=== PATIENT | female | born 1990 | race Caucasian/White ===

== ENCOUNTER 2019-01-25 09:59 | Emergency (ER) | payer MEDICAID ==
[2019-01-25] MEDS ORDERED: IBUPROFEN 600 MG TABLET PO ONE (10:11)
--- NOTE | 2019-01-25 10:16 | Emergency Department Record ---
History of Present Illness - General Chief complaint: Extremity Problem Stated complaint: SHOULDER INJURY Time Seen by Provider: 01/25/19 10:11 Source: Patient Mode of Arrival: Ambulatory Limitations: No limitations - History of Present Illness Initial comments: 28 yo female presents with right shoulder pain for over a week. The pain is superior and anterior. She states it hurts to lift the arm and externally rotate. No swelling, numbness or weakness. She did have a fall in November. It hurt for some time then but got better. No history of known shoulder disease. Dr Harrell is her PCP. MD Complaint: Joint pain Onset/Timin -: Week(s) Location: Right, Shoulder -: Yes Arthralgia Severity scale (1-10): 7 Quality: Aching, Sharp Consistency: Constant Improves with: Nothing Worsens with: Exertion, Weight bearing - Related Data Allergies Allergy/AdvReac Type Severity Reaction Status Date / Time codeine [CODEINE] Allergy Intermediate ANAPHYLAXIS Unverified 07/10/18 08:44 Travel Screening - Travel/Exposure Within Last 30 Days Have you traveled within the last 30 days?: No - Travel/Exposure Within Last Year Have you traveled outside the [place] in the last year?: No - Additonal Travel Details Have you been exposed to anyone with a communicable illness?: No - Travel Symptoms Symptom Screening: None Review of Systems Constitutional: Denies: Chills, Fever, Malaise, Weakness Eyes: Denies: Eye discharge, Vision change ENT: Denies: Congestion, Throat pain Respiratory: Denies: Cough, Dyspnea Cardiovascular: Denies: Chest pain, Syncope Endocrine: Denies: Fatigue Gastrointestinal: Denies: Abdominal pain, Diarrhea, Nausea, Vomiting Genitourinary: Denies: Abnormal menses Musculoskeletal: Reports: Arthralgia Skin: Denies: Bruising, Change in color, Rash Neurological: Denies: Headache, Weakness Psychiatric: Denies: Anxiety Hematological/Lymphatic: Denies: Easy bleeding, Easy bruising Past Medical History - SOCIAL HISTORY Smoking Status: Light tobacco smoker (<10/day) Alcohol Use: None Drug Use: None - RESPIRATORY Hx Respiratory Disorders: No - CARDIOVASCULAR Hx Cardio Disorders: No - NEURO Hx Neuro Disorders: No - GI Hx GI Disorders: No - Hx Genitourinary Disorders: Yes Hx Kidney Stones: Yes - ENDOCRINE Hx Endocrine Disorders: No - MUSCULOSKELETAL Hx Musculoskeletal Disorders: No - PSYCH Hx Psych Problems: No - HEMATOLOGY/ONCOLOGY Hx Hematology/Oncology Disorders: No Family Medical History Any Significant Family History?: No Family Hx Comment (NOT TO BE USED IN PLACE OF ITEMS BELOW): denies any hx. Physical Exam - General General Appearance: Alert, Oriented x3, Cooperative, No acute distress Limitations: No limitations - Head Head exam: Atraumatic, Normal inspection - Eye Eye exam: Normal appearance, PERRL. negative: Conjunctival injection, Scleral icterus - ENT ENT exam: Normal exam Ear exam: Normal external inspection Nasal Exam: Normal inspection Mouth exam: Normal external inspection - Neck Neck exam: Normal inspection - Respiratory Respiratory exam: Normal lung sounds bilaterally. negative: Respiratory distress, Rhonchi, Stridor, Wheezes - Cardiovascular Cardiovascular Exam: Regular rate, Normal rhythm, Normal heart sounds Peripheral Pulses: 2+: Radial (R) - GI/Abdominal GI/Abdominal exam: Soft. negative: Tenderness - Rectal Rectal exam: Deferred - exam: Deferred - Extremities Extremities exam: Normal inspection, Normal capillary refill, Tenderness. negative: Calf tenderness, Full ROM, Joint swelling, Pedal edema Image of Full Body: 1 - tender superior and at the AC, pain with abduction and external rotation, no warmth, redness or swelling - Neurological Neurological exam: Alert, Oriented X3 - Psychiatric Psychiatric exam: Normal affect, Normal mood - Skin Skin exam: Dry, Intact, Normal color, Warm Course Vital Signs 01/25/19 10:01 Temperature 98.3 F Pulse Rate 119 H Respiratory 16 Rate Blood Pressure 122/86 Pulse Ox 99 - Reevaluation(s) Reevaluation #1: 01/25/19 11:04 The XR of the right shoulder was negative for acute process We discussed the results and follow plan if any pain continues as she may need further work up with MRI Disposition Disposition: Discharge Clinical Impression: Sprain of shoulder, right Qualifiers: Encounter type: initial encounter Shoulder sprain type: unspecified sprain Qualified Code(s): S43.401A - Unspecified sprain of right shoulder joint, initial encounter Disposition: Home, Self-Care Condition: (1) Good Instructions: Shoulder Sprain (ED) Additional Instructions: Call your doctor for the next available follow up appointment You may need an MRI if the pain continues You may take Motrin as directed and ice the shoulder to decrease the pain Review this ER visit and the tests performed with your family doctor to discuss any follow up needs Forms: Patient Portal Access Time of Disposition: 11:05 Quality - Quality Measures Quality Measures: N/A - Blood Pressure Screening Does Patient Have Any of the Following: No Blood Pressure Classification: Normal BP Reading Systolic Measurement: 105 Diastolic Measurement: 78 Screening for High Blood Pressure: < Normal BP, F/U Not Required > [G8783]
== END 2019-01-25 11:25 | disposition home or self-care (01) ==
LOC: ER 09:59
DX: S43.401A Unspecified sprain of right shoulder joint, initial encounter (principal); X58.XXXA Exposure to other specified factors, initial encounter; F17.210 Nicotine dependence, cigarettes, uncomplicated
CPT/HCPCS: 99283

== ENCOUNTER 2019-02-05 18:14 | Emergency (ER) | payer MEDICAID ==
[2019-02-05] MEDS ORDERED: 0.9 % SODIUM CHLORIDE 1,000 ML BAG IV ONE (19:35)
--- NOTE | 2019-02-05 19:35 | Emergency Department Record ---
History of Present Illness - General Chief complaint: Flank Pain Stated complaint: CAN'T PEE/BACK PAIN Time Seen by Provider: 02/05/19 19:21 Source: Patient Mode of Arrival: Ambulatory - History of Present Illness Initial comments: The patient states that she has been unable to urinate all day today. She feels full in her bladder and her right flank hurts since last night. She tried a heating pad and motrin last night but it is worse today. She denies fevers, chills, nausea, or vomiting. She has a history of kidney stones and hydronephrosis in the past. 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 in the last year?: No - Additonal Travel Details Have you been exposed to anyone with a communicable illness?: No - Travel Symptoms Symptom Screening: None Review of Systems Reviewed: No additional complaints except as noted below Constitutional: Reports: As per HPI. Denies: Chills, Fever, Malaise, Night sweats, Weakness, Weight change Eyes: Reports: As per HPI. Denies: Eye discharge, Eye pain, Photophobia, Vision change ENT: Reports: As per HPI. Denies: Congestion, Dental pain, Ear pain, Epistaxis , Hearing loss, Throat pain Respiratory: Reports: As per HPI. Denies: Cough, Dyspnea, Hemoptysis, Stridor, Wheezes Cardiovascular: Reports: As per HPI. Denies: Arrhythmia, Chest pain, Dyspnea on exertion, Edema, Murmurs, Orthopnea, Palpitations, Paroxysmal nocturnal dyspnea, Rheumatic Fever, Syncope Endocrine: Reports: As per HPI. Denies: Fatigue, Heat or cold intolerance, Polydipsia, Polyuria Gastrointestinal: Reports: As per HPI. Denies: Abdominal pain, Constipation, Diarrhea, Hematemesis, Hematochezia, Melena, Nausea, Vomiting Genitourinary: Reports: As per HPI. Denies: Abnormal menses, Discharge, Dyspareunia, Dysuria, Frequency, Hematuria, Incontinence, Retention, Urgency Musculoskeletal: Reports: As per HPI. Denies: Arthralgia, Back pain, Gout, Joint swelling, Myalgia, Neck pain Skin: Reports: As per HPI. Denies: Bruising, Change in color, Change in hair/ nails, Lesions, Pruritus, Rash Neurological: Reports: As per HPI. Denies: Abnormal gait, Confusion, Headache, Numbness, Paresthesias, Seizure, Tingling, Tremors, Vertigo, Weakness Psychiatric: Reports: As per HPI. Denies: Anxiety, Auditory hallucinations, Depression, Homicidal thoughts, Suicidal thoughts, Visual hallucinations Hematological/Lymphatic: Reports: As per HPI. Denies: Anemia, Blood Clots, Easy bleeding, Easy bruising, Swollen glands Past Medical History - SOCIAL HISTORY Smoking Status: Light tobacco smoker (<10/day) Alcohol Use: None Drug Use: None - RESPIRATORY Hx Respiratory Disorders: No - CARDIOVASCULAR Hx Cardio Disorders: No - NEURO Hx Neuro Disorders: No - GI Hx GI Disorders: No - Hx Genitourinary Disorders: Yes Hx Kidney Stones: Yes - ENDOCRINE Hx Endocrine Disorders: No - MUSCULOSKELETAL Hx Musculoskeletal Disorders: No - PSYCH Hx Psych Problems: No - HEMATOLOGY/ONCOLOGY Hx Hematology/Oncology Disorders: No Family Medical History Any Significant Family History?: No Family Hx Comment (NOT TO BE USED IN PLACE OF ITEMS BELOW): denies any hx. Physical Exam - General General Appearance: Alert, Oriented x3, Cooperative, Mild distress - Head Head exam: Normal inspection - Eye Eye exam: Normal appearance, PERRL, EOMI. negative: Conjunctival injection, Nystagmus Pupils: Normal accommodation - ENT ENT exam: Normal exam, Mucous membranes moist, Normal external ear exam, Normal orophraynx, TM's normal bilaterally Ear exam: Normal external inspection. negative: External canal tenderness Nasal Exam: Normal inspection. negative: Discharge, Sinus tenderness Mouth exam: Normal external inspection, Tongue normal Teeth exam: Normal inspection. negative: Dental caries Throat exam: Normal inspection. negative: Tonsillar erythema, Tonsillar exudate - Neck Neck exam: Normal inspection, Full ROM. negative: Lymphadenopathy, Meningismus , Tenderness - Respiratory Respiratory exam: Normal lung sounds bilaterally. negative: Respiratory distress - Cardiovascular Cardiovascular Exam: Normal rhythm, Normal heart sounds, Tachycardia - GI/Abdominal GI/Abdominal exam: Soft, Normal bowel sounds, Tenderness (right lateral lower abdomen) - Rectal Rectal exam: Deferred - exam: Deferred - Extremities Extremities exam: Normal inspection, Full ROM, Normal capillary refill. negative: Calf tenderness, Pedal edema, Tenderness - Back Back exam: Reports: Normal inspection, CVA tenderness (R), Full ROM. Denies: Muscle spasm, Rash noted, Tenderness - Neurological Neurological exam: Alert, CN II-XII intact, Normal gait, Oriented X3, Reflexes normal. negative: Motor sensory deficit - Psychiatric Psychiatric exam: Normal affect, Normal mood - Skin Skin exam: Dry, Intact, Normal color, Warm Course Vital Signs 02/05/19 18:35 Temperature 98.2 F Pulse Rate 101 H Respiratory 16 Rate Blood Pressure 115/76 Pulse Ox 98 - Reevaluation(s) Reevaluation #1: Patient states that the toradol did not help her pain. dilaudid ordered. 02/05/19 21:36 Reevaluation #2: Discussed at length the need for a leg bag for the retention. Also discussed results of studies and all questions answered. Patient agrees and will call her urologist Dr. Huang in a.m. for recheck appointment. She has home catherization supplies as she has needed this in the past. After dilaudid her pain level is 0-1/10. She is read for DC. 02/05/19 22:16 Medical Decision Making - Management Options MDM Management: Additional Work-up Planned (e.g. ADM/Transfer/OP Study) (Out patient follow up with Dr. Huang.) - Data Complexity MDM Data: Labs Ordered and/or Reviewed, X-Ray Ordered and/or Reviewed (CT abd/ Pelvis: No acute process.) - Lab Data Result diagrams: 02/05/19 18:55 02/05/19 18:55 Disposition Disposition: Discharge Clinical Impression: Urinary retention with incomplete bladder emptying, Right flank pain Disposition: Home, Self-Care Condition: (1) Good Instructions: Flank Pain (ED), Acute Urinary Retention in Women (ED) Additional Instructions: Home with leg bag. Call Dr. Huang office in a.m. for follow up appointment. Push fluids. Tylenol alternated with ibuprofen as directed as needed for pain. Forms: Patient Portal Access Quality - Quality Measures Quality Measures: N/A - Blood Pressure Screening Does Patient Have Any of the Following: No Blood Pressure Classification: Normal BP Reading Systolic Measurement: 115 Diastolic Measurement: 76 Screening for High Blood Pressure: < Normal BP, F/U Not Required > [G8796]
[2019-02-05 19:47] LABS: URINE APPEARANCE CLEAR; URINE BILIRUBIN NEGATIVE (NEGATIVE); URINE BLOOD NEGATIVE (NEGATIVE); URINE COLOR YELLOW; URINE GLUCOSE (UA) NEGATIVE (NEGATIVE); URINE KETONE NEGATIVE (NEGATIVE); URINE LEUKOCYTE ESTERASE NEGATIVE (NEGATIVE); URINE NITRITE NEGATIVE (NEGATIVE); URINE PROTEIN NEGATIVE (NEGATIVE); URINE UROBILINOGEN 0.2 E.U./dL (0.20 - 1.00)
[2019-02-05 19:48] LABS: BASO % 0.3 % (0-6); EOS % 2.3 % (0-6); HEMATOCRIT 43.1 % (35.0-47.0); HEMOGLOBIN 13.7 gm/dl (11.6-16.0); LYMPH % 31.6 % (16-45); MEAN CELL VOLUME 89.2 fl (81-97); MEAN CORPUSCULAR HEMOGLOBIN 28.4 pg (27-33); MEAN CORPUSCULAR HGB CONC 31.8 g/dl (32-36); MEAN PLATELET VOLUME 10.7 fl (7.4-10.4); MONO % 5.8 % (0-9); PLATELET COUNT 373 K/uL (130-400); RED BLOOD COUNT 4.83 M/uL (3.80-5.40); RED CELL DISTRIBUTION WIDTH 14.1 % (11.5-14.5); WHITE BLOOD COUNT W/O DIFF 7.9 K/uL (4.2-12.2)
[2019-02-05 19:50] LABS: HCG,QUALITATIVE URINE NEGATIVE (NEGATIVE)
--- NOTE | 2019-02-05 19:52 | Emergency Department Record ---
History of Present Illness - General Chief complaint: Flank Pain Stated complaint: CAN'T PEE/BACK PAIN Time Seen by Provider: 02/05/19 19:21 Mode of Arrival: Ambulatory - History of Present Illness Onset/Timin -: Hour(s) Severity scale (1-10): 6 Quality: Sharp, Stabbing Consistency: Constant LMP Date: 08/19/18 Gestational Age (wks) based on LMP: 24 Associated Symptoms: Dysuria - Related Data Allergies Allergy/AdvReac Type Severity Reaction Status Date / Time codeine [CODEINE] Allergy Intermediate ANAPHYLAXIS Verified 02/05/19 18:46 Travel Screening - Travel/Exposure Within Last 30 Days Have you traveled within the last 30 days?: No - Travel/Exposure Within Last Year Have you traveled outside the [place] in the last year?: No - Additonal Travel Details Have you been exposed to anyone with a communicable illness?: No - Travel Symptoms Symptom Screening: None Past Medical History - SOCIAL HISTORY Smoking Status: Light tobacco smoker (<10/day) Alcohol Use: None Drug Use: None - RESPIRATORY Hx Respiratory Disorders: No - CARDIOVASCULAR Hx Cardio Disorders: No - NEURO Hx Neuro Disorders: No - GI Hx GI Disorders: No - Hx Genitourinary Disorders: Yes Hx Kidney Stones: Yes - ENDOCRINE Hx Endocrine Disorders: No - MUSCULOSKELETAL Hx Musculoskeletal Disorders: No - PSYCH Hx Psych Problems: No - HEMATOLOGY/ONCOLOGY Hx Hematology/Oncology Disorders: No Family Medical History Any Significant Family History?: No Family Hx Comment (NOT TO BE USED IN PLACE OF ITEMS BELOW): denies any hx. Course Vital Signs 02/05/19 18:35 Temperature 98.2 F Pulse Rate 101 H Respiratory 16 Rate Blood Pressure 115/76 Pulse Ox 98 Disposition Quality - Blood Pressure Screening Does Patient Have Any of the Following: No Blood Pressure Classification: Normal BP Reading Systolic Measurement: 115 Diastolic Measurement: 76 Screening for High Blood Pressure: < Normal BP, F/U Not Required > [G8783]
[2019-02-05 19:56] LABS: BLOOD UREA NITROGEN 15 mg/dL (6-20); CREATININE 0.6 mg/dL (0.5-0.9); EST GLOMERULAR FILTRATION RATE > 60 mL/min; TOTAL PROTEIN 7.7 g/dL (6.6-8.7)
[2019-02-05 19:57] LABS: LIPASE 27 U/L (13-60)
[2019-02-05 19:58] LABS: GLUCOSE,RANDOM 83 mg/dL (74-109)
[2019-02-05 20:01] LABS: ALB/GLOB RATIO 1.6 (1.1-1.8); ALBUMIN 4.7 g/dL (4.0-5.0); ALKALINE PHOSPHATASE 197 U/L (35-104); ALT/SGPT 17 U/L (<33); AST/SGOT 15 U/L (10.0-35.0)
[2019-02-05] MEDS ORDERED: KETOROLAC 30 MG/ML VIAL IVP ONE (20:38)
[2019-02-05] MEDS ORDERED: HYDROMORPHONE HCL 2 MG/ML VIAL IVP ONE (21:34)
[2019-02-05] MEDS ORDERED: ONDANSETRON HCL IV 4 MG/2 ML VIAL IVP ONE (21:35)
--- NOTE | 2019-02-07 13:27 | CT SCAN REPORT ---
EXAM: CT OF THE ABDOMEN AND PELVIS WITHOUT CONTRAST HISTORY: FLANK PAIN. TECHNIQUE: Noncontrast CT images are obtained from the lung bases to the symphysis pubis. FINDINGS: The lung bases are unremarkable. The liver is normal in size and shape. The gallbladder is absent. The pancreas is normal. The spleen is not enlarged. There are no adrenal lesions. There is no evidence of renal calculus or hydronephrosis. The right ureter is unremarkable to the level of the bladder wall. There is a Beltre catheter present in a nondistended bladder. The stomach and small bowel are unremarkable. The appendix is not identified, but there are no inflammatory changes around the cecum. IMPRESSION: NO ACUTE INTRAABDOMINAL PROCESS IS IDENTIFIED. JOB NUMBER: [id number] MTDD
== END 2019-02-05 22:44 | disposition home or self-care (01) ==
LOC: ER 18:14
DX: R33.8 Other retention of urine (principal); R30.0 Dysuria; R34 Anuria and oliguria; R10.31 Right lower quadrant pain; F17.210 Nicotine dependence, cigarettes, uncomplicated
CPT/HCPCS: 99284 ×2; 96374; 96375; 83690; 85025; 80053; 81003; 81025; 74176; J1885; J2405; J1170; J7030

== ENCOUNTER 2019-04-01 18:05 | Emergency (ER) | payer MEDICAID ==
[2019-04-01] MEDS ORDERED: 0.9 % SODIUM CHLORIDE 1,000 ML BAG IV ONE (18:38)
--- NOTE | 2019-04-01 18:38 | Emergency Department Record ---
History of Present Illness - General Chief complaint: Flank Pain Stated complaint: R FLANK PAIN Time Seen by Provider: 04/01/19 18:15 Source: Patient Mode of Arrival: Ambulatory Limitations: No limitations - History of Present Illness Initial comments: pt has been unable to urinate since this am. she has r flank pain that feels like previous kidny stones. Complaint: Other Onset/Timin -: Days(s) Location: Suprapubic Radiation: R flank Severity: Moderate Severity scale (1-10): 6 Quality: Aching Consistency: Constant Improves with: None Worsens with: None Associated Symptoms: Abdominal pain, Dysuria, Nausea/vomiting - Related Data Allergies Allergy/AdvReac Type Severity Reaction Status Date / Time codeine [CODEINE] Allergy Intermediate ANAPHYLAXIS Verified 04/01/19 18:15 Travel Screening - Travel/Exposure Within Last 30 Days Have you traveled within the last 30 days?: No Review of Systems Reviewed: No additional complaints except as noted below Constitutional: Reports: As per HPI. Denies: Chills, Fever, Malaise, Night sweats, Weakness, Weight change Eyes: Reports: As per HPI. Denies: Eye discharge, Eye pain, Photophobia, Vision change ENT: Reports: As per HPI. Denies: Congestion, Dental pain, Ear pain, Epistaxis, Hearing loss, Throat pain Respiratory: Reports: As per HPI. Denies: Cough, Dyspnea, Hemoptysis, Stridor, Wheezes Cardiovascular: Reports: As per HPI. Denies: Arrhythmia, Chest pain, Dyspnea on exertion, Edema, Murmurs, Orthopnea, Palpitations, Paroxysmal nocturnal dyspnea, Rheumatic Fever, Syncope Endocrine: Reports: As per HPI. Denies: Fatigue, Heat or cold intolerance, Polydipsia, Polyuria Gastrointestinal: Reports: As per HPI. Denies: Abdominal pain, Constipation, Diarrhea, Hematemesis, Hematochezia, Melena, Nausea, Vomiting Genitourinary: Reports: As per HPI. Denies: Abnormal menses, Discharge, Dyspareunia, Dysuria, Frequency, Hematuria, Incontinence, Retention, Urgency Musculoskeletal: Reports: As per HPI. Denies: Arthralgia, Back pain, Gout, Joint swelling, Myalgia, Neck pain Skin: Reports: As per HPI. Denies: Bruising, Change in color, Change in hair/nails, Lesions, Pruritus, Rash Neurological: Reports: As per HPI. Denies: Abnormal gait, Confusion, Headache, Numbness, Paresthesias, Seizure, Tingling, Tremors, Vertigo, Weakness Psychiatric: Reports: As per HPI. Denies: Anxiety, Auditory hallucinations, Depression, Homicidal thoughts, Suicidal thoughts, Visual hallucinations Hematological/Lymphatic: Reports: As per HPI. Denies: Anemia, Blood Clots, Easy bleeding, Easy bruising, Swollen glands Past Medical History - SOCIAL HISTORY Smoking Status: Light tobacco smoker (<10/day) Alcohol Use: None Drug Use: None - RESPIRATORY Hx Respiratory Disorders: No - CARDIOVASCULAR Hx Cardio Disorders: No - NEURO Hx Neuro Disorders: No - GI Hx GI Disorders: No - Hx Genitourinary Disorders: Yes Hx Kidney Stones: Yes Hx UTI: Yes - ENDOCRINE Hx Endocrine Disorders: No - MUSCULOSKELETAL Hx Musculoskeletal Disorders: No - PSYCH Hx Psych Problems: No - HEMATOLOGY/ONCOLOGY Hx Hematology/Oncology Disorders: No Family Medical History Any Significant Family History?: No Family Hx Comment (NOT TO BE USED IN PLACE OF ITEMS BELOW): denies any hx. Physical Exam - General General Appearance: Alert, Oriented x3, Cooperative, Mild distress - Head Head exam: Normal inspection - Eye Eye exam: Normal appearance, PERRL, EOMI Pupils: Normal accommodation - ENT ENT exam: Normal exam, Mucous membranes moist, Normal external ear exam, Normal orophraynx Ear exam: Normal external inspection. negative: External canal tenderness Nasal Exam: Normal inspection. negative: Discharge, Sinus tenderness Mouth exam: Normal external inspection, Tongue normal Teeth exam: Normal inspection. negative: Dental caries Throat exam: Normal inspection. negative: Tonsillar erythema, Tonsillar exudate - Neck Neck exam: Normal inspection, Full ROM. negative: Tenderness - Respiratory Respiratory exam: Normal lung sounds bilaterally. negative: Respiratory distress - Cardiovascular Cardiovascular Exam: Regular rate, Normal rhythm, Normal heart sounds - GI/Abdominal GI/Abdominal exam: Soft, Normal bowel sounds. negative: Tenderness - Rectal Rectal exam: Deferred - exam: Deferred - Extremities Extremities exam: Normal inspection, Full ROM, Normal capillary refill. negative: Tenderness - Back Back exam: Reports: CVA tenderness (R), Full ROM. Denies: Muscle spasm, Rash noted, Tenderness - Neurological Neurological exam: Alert, CN II-XII intact, Normal gait, Oriented X3 - Psychiatric Psychiatric exam: Normal affect, Normal mood - Skin Skin exam: Dry, Intact, Normal color, Warm Course Vital Signs 04/01/19 18:11 Temperature 97.7 F Pulse Rate 86 Respiratory 18 Rate Blood Pressure 144/84 Pulse Ox 100 - Reevaluation(s) Reevaluation #1: 04/01/19 20:47 ct neg Medical Decision Making - Lab Data Result diagrams: 04/01/19 18:30 04/01/19 18:30 Disposition Disposition: Discharge Clinical Impression: Urinary retention Disposition: Home, Self-Care Condition: (1) Good Instructions: Acute Urinary Retention in Women (ED) Additional Instructions: follow up with family doctor and with urologist. return sooner if worse Forms: Patient Portal Access Quality - Quality Measures Quality Measures: N/A - Blood Pressure Screening Does Patient Have Any of the Following: No Blood Pressure Classification: Pre-Hypertensive BP Reading Systolic Measurement: 144 Diastolic Measurement: 84 Screening for High Blood Pressure: < Pre-Hypertensive BP, F/U Documented > [G8950] Pre-Hypertensive Follow-up Interventions: Follow-up with rescreen every year.
[2019-04-01 18:48] LABS: ABSOLUTE NEUTROPHIL COUNT 4.13; BASO % 0.3 % (0-6); EOS % 1.7 % (0-6); GRAN % 54.7 % (47-80); HEMATOCRIT 42.7 % (35.0-47.0); HEMOGLOBIN 13.4 gm/dl (11.6-16.0); LYMPH % 37.6 % (16-45); MEAN CELL VOLUME 90.1 fl (81-97); MEAN CORPUSCULAR HEMOGLOBIN 28.3 pg (27-33); MEAN CORPUSCULAR HGB CONC 31.4 g/dl (32-36); MEAN PLATELET VOLUME 10.3 fl (7.4-10.4); MONO % 5.7 % (0-9); PLATELET COUNT 388 K/uL (130-400); RED BLOOD COUNT 4.74 M/uL (3.80-5.40); RED CELL DISTRIBUTION WIDTH 13.6 % (11.5-14.5); WHITE BLOOD COUNT W/O DIFF 7.6 K/uL (4.2-12.2)
[2019-04-01 19:01] LABS: BLOOD UREA NITROGEN 10 mg/dL (6-20); CREATININE 0.6 mg/dL (0.5-0.9); EST GLOMERULAR FILTRATION RATE > 60 mL/min
[2019-04-01 19:04] LABS: GLUCOSE,RANDOM 89 mg/dL (74-109)
[2019-04-01 19:16] LABS: URINE APPEARANCE CLEAR; URINE BILIRUBIN NEGATIVE (NEGATIVE); URINE BLOOD TRACE-I (NEGATIVE); URINE COLOR YELLOW; URINE GLUCOSE (UA) NEGATIVE (NEGATIVE); URINE KETONE NEGATIVE (NEGATIVE); URINE LEUKOCYTE ESTERASE NEGATIVE (NEGATIVE); URINE NITRITE NEGATIVE (NEGATIVE); URINE PROTEIN NEGATIVE (NEGATIVE); URINE UROBILINOGEN 0.2 E.U./dL (0.20 - 1.00)
[2019-04-01 19:23] LABS: HCG,QUALITATIVE URINE NEGATIVE (NEGATIVE)
[2019-04-01 19:28] LABS: URINE BACTERIA FEW; URINE EPITHELIAL CELLS 0 - 2 (FEW); URINE WBC 0 - 2 (0-2/hpf)
[2019-04-01] MEDS ORDERED: KETOROLAC 30 MG/ML VIAL IVP ONE (19:35)
--- NOTE | 2019-04-03 14:05 | CT SCAN REPORT ---
EXAM: CT SCAN OF THE ABDOMEN AND PELVIS HISTORY: PATIENT HAS RIGHT FLANK PAIN. TECHNIQUE: Serial axial CT scan of the abdomen and pelvis was performed at 2.5 mm intervals from the dome of the diaphragm down to the pubic symphysis without the use of intravenous or oral contrast. Comparison: CT scan of the abdomen and pelvis dated 03/04/19 is provided. FINDINGS: Lung windows of the lung bases demonstrate no CT evidence of a focal infiltrate or pleural effusion. The visualized heart size and contour is within normal limits. The liver, spleen, pancreas, and bilateral adrenal glands are unremarkable. The gallbladder is not visualized. The bilateral kidneys demonstrate no CT evidence of hydronephrosis or hydroureter. No renal or ureteral calculi are noted. The contour and caliber of the noncontrasted abdominal aorta is within normal limits. There is no CT evidence of retroperitoneal, pelvic, or inguinal lymphadenopathy. The bowel gas pattern is nonspecific and nonobstructive. There is no CT evidence of free intraperitoneal fluid or free intraperitoneal air. The uterus is unremarkable. Bone windows demonstrate no CT evidence of a fracture or dislocation of the visualized osseous structures. IMPRESSION: NO CT EVIDENCE OF AN ACUTE INTRAABDOMINAL PROCESS. JOB NUMBER: [id number] MTDD
== END 2019-04-01 21:04 | disposition home or self-care (01) ==
LOC: ER 18:05
DX: R33.8 Other retention of urine (principal); R10.9 Unspecified abdominal pain; R33.0 Drug induced retention of urine; R11.2 Nausea with vomiting, unspecified; Z87.442 Personal history of urinary calculi; F17.210 Nicotine dependence, cigarettes, uncomplicated
CPT/HCPCS: 99284 ×2; 96374; 85025; 80048; 81001; 81025; 74176; J1885; J7030

== ENCOUNTER 2019-08-05 18:51 | Emergency (ER) | payer SELFPAY ==
--- NOTE | 2019-08-05 19:03 | Emergency Department Record ---
History of Present Illness - General Stated Complaint: RT FLANK PAIN Time Seen by Provider: 08/05/19 19:01 Source: Patient Mode of Arrival: Ambulatory Limitations: No limitations - History of Present Illness Initial Comments: 29 yo female presents with flank pain. The pain is located on the right side. No fever. The pain is sharp. The pain started four days ago. It has been constant. She has a history of renal stones in the past. She had a complicated by an obstructing renal stone resulting in stent. She has had her gall bladder and appendix removed. No trauma, no rash. No diarrhea. She has some pain with urination. EMR reviewed: Negative CT of the abdomen and pelvis for stones in February and March of 2019. Both normal CT scan examinations. MD Complaint: Flank pain -: Days(s) (4) Location: R Flank Radiation: R flank Migration to: R Flank Severity: Moderate Quality: Aching, Sharp Consistency: Constant Improves With: Nothing Worsens With: Nothing Context: Other Associated Symptoms: Denies other symptoms - Related Data Allergies Allergy/AdvReac Type Severity Reaction Status Date / Time codeine [CODEINE] Allergy Intermediate ANAPHYLAXIS Verified 08/05/19 19:13 Review of Systems Constitutional: Denies: Chills, Fever, Malaise, Night sweats, Weakness Eyes: Denies: Eye discharge ENT: Denies: Congestion, Throat pain Respiratory: Denies: Cough, Dyspnea Cardiovascular: Denies: Chest pain, Palpitations, Syncope Endocrine: Denies: Fatigue, Polydipsia, Polyuria Gastrointestinal: Reports: As per HPI, Abdominal pain. Denies: Diarrhea, Nausea, Vomiting Genitourinary: Reports: Abnormal menses, Dysuria. Denies: Incontinence, Retention Musculoskeletal: Reports: As per HPI, Back pain Skin: Denies: Bruising, Change in color, Rash Neurological: Denies: Confusion, Headache, Numbness, Weakness Psychiatric: Denies: Anxiety Hematological/Lymphatic: Denies: Easy bleeding, Easy bruising Past Medical History - SOCIAL HISTORY Smoking Status: Light tobacco smoker (<10/day) Drug Use: None - RESPIRATORY Hx Respiratory Disorders: No - CARDIOVASCULAR Hx Cardio Disorders: No - NEURO Hx Neuro Disorders: No - GI Hx GI Disorders: No - Hx Genitourinary Disorders: Yes Hx Kidney Stones: Yes Hx UTI: Yes - ENDOCRINE Hx Endocrine Disorders: No - MUSCULOSKELETAL Hx Musculoskeletal Disorders: No - PSYCH Hx Psych Problems: No - HEMATOLOGY/ONCOLOGY Hx Hematology/Oncology Disorders: No Family Medical History Family Hx Comment (NOT TO BE USED IN PLACE OF ITEMS BELOW): denies any hx. Physical Exam - General General Appearance: Alert, Oriented x3, Cooperative, No acute distress Limitations: No limitations - Head Head exam: Atraumatic, Normal inspection - Eye Eye exam: Normal appearance, PERRL. negative: Conjunctival injection, Scleral icterus - ENT ENT exam: Normal exam, Mucous membranes moist Ear exam: Normal external inspection Nasal Exam: Normal inspection Mouth exam: Normal external inspection - Neck Neck exam: Normal inspection - Respiratory Respiratory exam: Normal lung sounds bilaterally. negative: Respiratory distress - Cardiovascular Cardiovascular Exam: Regular rate, Normal rhythm, Normal heart sounds - GI/Abdominal GI/Abdominal exam: Soft, Tenderness (mild suprapubic tenderness). negative: Distended, Guarding, Rebound, Rigid - Rectal Rectal exam: Deferred - exam: Deferred - Extremities Extremities exam: Normal inspection. negative: Calf tenderness, Pedal edema, Tenderness - Back Back exam: Reports: CVA tenderness (R), Tenderness. Denies: CVA tenderness (L), Paraspinal tenderness, Rash noted - Neurological Neurological exam: Alert, Oriented X3 - Psychiatric Psychiatric exam: Normal affect, Normal mood. negative: Agitated, Anxious - Skin Skin exam: Dry, Intact, Normal color, Warm Course Vital Signs 08/05/19 19:01 Temperature 98.4 F Pulse Rate [ 86 Pulse Ox Probe] Respiratory 20 Rate Blood Pressure 123/78 [Left Arm] Pulse Ox 100 - Reevaluation(s) Reevaluation #1: 08/05/19 19:13 EMR reviewed The most recent CT of the abdomen was 04/01/19. It was negative for stone in the kidney, ureter or bladder. Normal CT The CT in February of 2019 was normal as well I discussed step howell approach to her pain given her multiple CT scan history with risks of increasing radiation exposure. Given no stones less than 5 months ago and a normal study the month prior to that to do not recommend and immediate emergent CT. 08/05/19 19:21 HCT is negative 08/05/19 19:23 08/05/19 19:28 UA is negative for blood or acute infection 08/05/19 19:28 08/05/19 19:45 The CBC is normal The BMP is normal 08/05/19 19:58 Alk Phos 189 AST normal, ALT Normal, Bili Normal, Lipase Normal I recommend return in the AM for an US if the flank pain continues If resolved or minimal follow up with her PCP Medical Decision Making - Lab Data Result diagrams: 08/05/19 19:20 08/05/19 19:20 Disposition Disposition: Discharge Clinical Impression: Flank pain Disposition: Home, Self-Care Condition: (1) Good Instructions: Flank Pain (ED) Additional Instructions: Review this ER visit and the tests performed with your family doctor Call your doctor for the next available follow up appointment Return to the ER for a recheck if worse, any new concerns or questions Return at 7am for a recheck and ultrasound if the pain is still present Forms: Patient Portal Access Time of Disposition: 20:05 Quality - Quality Measures Quality Measures: N/A - Blood Pressure Screening Does Patient Have Any of the Following: No Blood Pressure Classification: Normal BP Reading Systolic Measurement: 103 Diastolic Measurement: 67 Screening for High Blood Pressure: < Normal BP, F/U Not Required > [G8783]
[2019-08-05] MEDS ORDERED: KETOROLAC 30 MG/ML VIAL IM ONE (19:08)
[2019-08-05 19:15] LABS: URINE APPEARANCE CLOUDY; URINE BILIRUBIN NEGATIVE (NEGATIVE); URINE BLOOD NEGATIVE (NEGATIVE); URINE COLOR YELLOW; URINE GLUCOSE (UA) NEGATIVE (NEGATIVE); URINE KETONE NEGATIVE (NEGATIVE); URINE LEUKOCYTE ESTERASE SMALL (NEGATIVE); URINE NITRITE NEGATIVE (NEGATIVE); URINE PROTEIN NEGATIVE (NEGATIVE); URINE UROBILINOGEN 0.2 E.U./dL (0.20 - 1.00)
[2019-08-05 19:21] LABS: URINE AMORPHOUS SEDIMENT 4+; URINE BACTERIA FEW; URINE RBC 0 - 2 (NONE SEEN); URINE WBC 0 - 2 (0-2/hpf)
[2019-08-05 19:32] LABS: ABSOLUTE NEUTROPHIL COUNT 5.12; BASO % 0.5 % (0-6); EOS % 1.3 % (0-6); HEMATOCRIT 44.2 % (35.0-47.0); HEMOGLOBIN 14.4 gm/dl (11.6-16.0); LYMPH % 38.8 % (16-45); MEAN CELL VOLUME 89.1 fl (81-97); MEAN CORPUSCULAR HGB CONC 32.6 g/dl (32-36); MEAN PLATELET VOLUME 10.2 fl (7.4-10.4); MONO % 5.4 % (0-9); PLATELET COUNT 351 K/uL (130-400); RED BLOOD COUNT 4.96 M/uL (3.80-5.40); RED CELL DISTRIBUTION WIDTH 13.8 % (11.5-14.5); WHITE BLOOD COUNT W/O DIFF 9.5 K/uL (4.2-12.2)
[2019-08-05 19:40] LABS: BLOOD UREA NITROGEN 10 mg/dL (6-20); CREATININE 0.5 mg/dL (0.5-0.9); EST GLOMERULAR FILTRATION RATE > 60 mL/min; TOTAL PROTEIN 7.7 g/dL (6.6-8.7)
[2019-08-05 19:41] LABS: LIPASE 25 U/L (13-60)
[2019-08-05 19:42] LABS: GLUCOSE,RANDOM 97 mg/dL (74-109)
[2019-08-05 19:45] LABS: ALB/GLOB RATIO 1.3 (1.1-1.8); ALBUMIN 4.4 g/dL (4.0-5.0); ALKALINE PHOSPHATASE 186 U/L (35-104); ALT/SGPT 17 U/L (<33); AST/SGOT 16 U/L (10.0-35.0)
[2019-08-05] MEDS ORDERED: HYDROCODONE/APAP 5/325MG TABLET PO ONE (20:04)
== END 2019-08-05 20:15 | disposition home or self-care (01) ==
LOC: ER 18:51
DX: R10.31 Right lower quadrant pain (principal); F17.210 Nicotine dependence, cigarettes, uncomplicated; Z87.442 Personal history of urinary calculi
CPT/HCPCS: 80053; 81001; 81025; 83690; 85025; 96372; 99284; J1885

== ENCOUNTER 2019-08-07 17:49 | Emergency (ER) | payer SELFPAY ==
[2019-08-07] MEDS ORDERED: KETOROLAC 30 MG/ML VIAL IVP ONE (18:03)
--- NOTE | 2019-08-07 18:09 | Emergency Department Record ---
History of Present Illness - General Chief complaint: Flank Pain Stated complaint: FLANK PAIN/BLOODY STOOLS Time Seen by Provider: 08/07/19 17:51 Source: Patient Mode of Arrival: Ambulatory Limitations: No limitations - History of Present Illness Initial comments: 29 yo female returns to ED for evaluation of on-going right sided flank pain symptoms that began 2-3 days ago. Patient denies fevers, chills, nausea, or vomiting symptoms. Patient denies hematuria or dysuria, but does report the development of "blood in the stool". Patient denies history of IBD or history of previous symptoms. Patient did follow-up with her PCP yesterday without impr ovement. Patient was also asked to return for US imaging of the kidneys yesterday but could not return due to caring for children. MD Complaint: Other Onset/Timin -: Days(s) Radiation: R flank Severity: Moderate Quality: Sharp, Stabbing Consistency: Constant Improves with: None Worsens with: None Patient : No Associated Symptoms: Denies other symptoms - Related Data Previous Rx's Medication Instructions Recorded Ciprofloxacin HCl [Cipro] 500 mg PO Q12HR #19 tablet 08/07/19 Metronidazole [Flagyl] 500 mg PO Q8H #29 tablet 08/07/19 Allergies Allergy/AdvReac Type Severity Reaction Status Date / Time codeine [CODEINE] Allergy Intermediate ANAPHYLAXIS Verified 08/07/19 18:02 Travel Screening - Travel/Exposure Within Last 30 Days Have you traveled within the last 30 days?: No Review of Systems Constitutional: Denies: Chills, Fever, Malaise, Night sweats Eyes: Denies: Eye discharge, Eye pain ENT: Denies: Congestion, Ear pain, Epistaxis Respiratory: Denies: Cough, Dyspnea Cardiovascular: Denies: Chest pain, Dyspnea on exertion Endocrine: Denies: Fatigue, Heat or cold intolerance Gastrointestinal: Reports: Abdominal pain, Hematochezia. Denies: Constipation, Vomiting Genitourinary: Denies: Incontinence, Retention Musculoskeletal: Reports: Back pain (Right flank pain). Denies: Arthralgia Skin: Denies: Bruising, Change in color Neurological: Denies: Abnormal gait, Confusion, Headache Psychiatric: Denies: Anxiety Hematological/Lymphatic: Denies: Anemia, Blood Clots Past Medical History - SOCIAL HISTORY Smoking Status: Light tobacco smoker (<10/day) Alcohol Use: None Drug Use: None - RESPIRATORY Hx Respiratory Disorders: No - CARDIOVASCULAR Hx Cardio Disorders: No - NEURO Hx Neuro Disorders: No - GI Hx GI Disorders: No - Hx Genitourinary Disorders: Yes Hx Kidney Stones: Yes Hx UTI: Yes - ENDOCRINE Hx Endocrine Disorders: No - MUSCULOSKELETAL Hx Musculoskeletal Disorders: No - PSYCH Hx Psych Problems: No - HEMATOLOGY/ONCOLOGY Hx Hematology/Oncology Disorders: No Family Medical History Any Significant Family History?: No Family Hx Comment (NOT TO BE USED IN PLACE OF ITEMS BELOW): denies any hx. Physical Exam - General General Appearance: Alert, Oriented x3, Cooperative, Other (Appears comfortable on examination in no distress, pain appears well controlled on examination.) Limitations: No limitations - Head Head exam: Atraumatic, Normocephalic, Normal inspection Head exam detail: negative: Abrasion, Contusion, Byrne's sign, General tenderness, Hematoma, Laceration - Eye Eye exam: Normal appearance. negative: Conjunctival injection, Periorbital swelling, Periorbital tenderness, Scleral icterus - ENT Ear exam: negative: Auricular hematoma, Auricular trauma Nasal Exam: negative: Active bleeding, Discharge, Dried blood, Foreign body Mouth exam: negative: Drooling, Laceration, Muffled voice, Tongue elevation - Neck Neck exam: Normal inspection. negative: Meningismus, Tenderness - Respiratory Respiratory exam: Normal lung sounds bilaterally. negative: Respiratory distress, Rhonchi, Stridor, Wheezes - Cardiovascular Cardiovascular Exam: Regular rate, Normal rhythm, Normal heart sounds - GI/Abdominal GI/Abdominal exam: Soft. negative: Distended, Rebound, Rigid, Tenderness - Rectal Rectal exam: Deferred - exam: Deferred - Extremities Extremities exam: Normal inspection. negative: Pedal edema, Tenderness - Back Back exam: Reports: CVA tenderness (R). Denies: CVA tenderness (L) - Neurological Neurological exam: Alert, Normal gait, Oriented X3 - Psychiatric Psychiatric exam: Normal affect, Normal mood - Skin Skin exam: Normal color. negative: Abrasion Type of lesion: negative: abrasion Course Vital Signs 08/07/19 17:58 Temperature 98.3 F Pulse Rate 94 H Respiratory 18 Rate Blood Pressure 129/100 Pulse Ox 100 - Reevaluation(s) Reevaluation #1: 08/07/19 18:04 Previous record was reviewed: Laboratory studies were reviewe from 08/05/19, gross unremarkable for an acute process. Previous CT imaging from 02/21, 03/23 negative for ureteral/kidney stones. As this is the patient's 3rd visit for ongoing symptoms, will initiate evaluation with laboratory studies and CT imaging. Will administer Toradol for pain symptoms and reassess. Reevaluation #2: 08/07/19 18:37 Laboratory studies reviewed and appear grossly unremarkable for an acute process. Reevaluation #3: 08/07/19 18:47 Patient was reassessed at this time, reports that her pain symptoms are improved. Patient is going for CT imaging at this time. Reevaluation #4: 08/07/19 19:57 CT Abdomen and Pelvis: Uterine fibroids Possible bowel wall thickening of the descending colon extending to the rectum Patient was updated on all results Following discussion with the patient, she would prefer antibiotic treatment for possible colitis given her rectal bleeding symptoms. Will initiate treatment with Cipro and Flagyl at this time, instructed to follow-up with her PCP in 3-5 days to ensure that her symptoms are improving. Patient appears stable for discharge at this time. Medical Decision Making - Lab Data Result diagrams: 08/07/19 18:10 08/07/19 18:10 Disposition Disposition: Discharge Clinical Impression: Colitis, Flank pain, acute Disposition: Home, Self-Care Condition: (2) Stable Instructions: Flank Pain (ED) Additional Instructions: Return to ED if your symptoms worsen or if you have any concerns. Flagyl, Cipro as directed. Follow-up with your family doctor in 3-5 days as directed. Prescriptions: Ciprofloxacin HCl [Cipro] 500 mg PO Q12HR #19 tablet Metronidazole [Flagyl] 500 mg PO Q8H #29 tablet Forms: Patient Portal Access Time of Disposition: 20:01 Quality - Quality Measures Quality Measures: N/A - Blood Pressure Screening Does Patient Have Any of the Following: No Blood Pressure Classification: Hypertensive Reading Systolic Measurement: 129 Diastolic Measurement: 100 Screening for High Blood Pressure: < First Hypertensive BP, F/U Documented > [G8950] First Hypertensive Follow-up Interventions: Referral to alternative/primary care provider.
[2019-08-07] MEDS ORDERED: 0.9 % SODIUM CHLORIDE 1000ML 1,000 ML IV SCH (18:15)
[2019-08-07 18:23] LABS: URINE APPEARANCE CLOUDY; URINE BILIRUBIN NEGATIVE (NEGATIVE); URINE BLOOD NEGATIVE (NEGATIVE); URINE COLOR ORANGE; URINE GLUCOSE (UA) NEGATIVE (NEGATIVE); URINE KETONE NEGATIVE (NEGATIVE); URINE LEUKOCYTE ESTERASE TRACE (NEGATIVE); URINE NITRITE NEGATIVE (NEGATIVE); URINE PROTEIN NEGATIVE (NEGATIVE); URINE UROBILINOGEN 0.2 E.U./dL (0.20 - 1.00)
[2019-08-07 18:24] LABS: ABSOLUTE NEUTROPHIL COUNT 4.35; BASO % 0.4 % (0-6); EOS % 1.6 % (0-6); GRAN % 57.2 % (47-80); HEMATOCRIT 42.4 % (35.0-47.0); HEMOGLOBIN 13.6 gm/dl (11.6-16.0); LYMPH % 35.7 % (16-45); MEAN CELL VOLUME 89.8 fl (81-97); MEAN CORPUSCULAR HEMOGLOBIN 28.8 pg (27-33); MEAN CORPUSCULAR HGB CONC 32.1 g/dl (32-36); MEAN PLATELET VOLUME 10.3 fl (7.4-10.4); MONO % 5.1 % (0-9); PLATELET COUNT 383 K/uL (130-400); RED BLOOD COUNT 4.72 M/uL (3.80-5.40); RED CELL DISTRIBUTION WIDTH 13.8 % (11.5-14.5); WHITE BLOOD COUNT W/O DIFF 7.6 K/uL (4.2-12.2)
[2019-08-07 18:32] LABS: BLOOD UREA NITROGEN 10 mg/dL (6-20); CREATININE 0.6 mg/dL (0.5-0.9); EST GLOMERULAR FILTRATION RATE > 60 mL/min
[2019-08-07 18:33] LABS: LIPASE 26 U/L (13-60); TOTAL PROTEIN 7.3 g/dL (6.6-8.7)
[2019-08-07 18:34] LABS: URINE BACTERIA NONE SEEN; URINE RBC NONE SEEN (NONE SEEN); URINE WBC 0 - 2 (0-2/hpf)
[2019-08-07 18:35] LABS: GLUCOSE,RANDOM 98 mg/dL (74-109)
[2019-08-07 18:38] LABS: ALB/GLOB RATIO 1.6 (1.1-1.8); ALBUMIN 4.5 g/dL (4.0-5.0); ALKALINE PHOSPHATASE 180 U/L (35-104); ALT/SGPT 16 U/L (<33); AST/SGOT 15 U/L (10.0-35.0)
[2019-08-07] MEDS ORDERED: CIPROFLOXACIN HCL 500 MG TABLET PO ONE (19:56)
[2019-08-07] MEDS ORDERED: METRONIDAZOLE 250 MG TABLET PO ONE (19:56)
--- NOTE | 2019-08-09 20:01 | CT SCAN REPORT ---
EXAM: CT SCAN ABDOMEN/PELVIS W CONTRAST HISTORY: PATIENT HAS RIGHT FLANK PAIN. TECHNIQUE: Serial axial CT scan of the abdomen and pelvis was performed at 2.15 mm intervals from the dome of the diaphragm down to the pubic symphysis following the intravenous administration of 100 mL of Omnipaque-300. COMPARISON: Comparison CT scan of the abdomen and pelvis dated 04/01/2019 is provided. FINDINGS: Lung windows of the lung bases demonstrate no CT evidence of a focal infiltrate or pleural effusion. The visualized heart size and contour is within normal limits. The liver, spleen, pancreas, adrenal glands are unremarkable. Gallbladder is not visualized. There is no CT evidence of hydronephrosis or hydroureter. Bilateral renal cysts are unchanged with respect to the prior examination. No renal or ureteral calculi are noted. The contour, caliber, and flow within the abdominal aorta is within normal limits. There is no CT evidence of retroperitoneal, pelvic, or inguinal lymphadenopathy. The bowel gas pattern is nonobstructive. There is apparent thickening of the descending and rectosigmoid colon, however, this may be an artifact related to decompression. There is no CT evidence of free intraperitoneal fluid or free intraperitoneal air. Urinary bladder is unremarkable. The uterus demonstrates a lobulated contour with areas of heterogeneous attenuation. This findings may represent uterine fibroids. If there is further clinical concern, then an ultrasound examination of the pelvis can be obtained for further evaluation. Bone windows demonstrate no CT evidence of a fracture or dislocation of the visualized osseous structures. IMPRESSION: 1. POSSIBLE UTERINE FIBROIDS. IF THERE IS FURTHER CLINICAL CONCERN, THEN ULTRASOUND EXAMINATION OF THE PELVIS CAN BE OBTAINED FOR FURTHER EVALUATION. 2. APPARENT WALL THICKENING OF THE DESCENDING AND RECTOSIGMOID COLON MAY BE ARTIFACTUAL DUE TO DECOMPRESSION. CLINICAL CORRELATION IS RECOMMENDED. JOB NUMBER: [id number] [facility]
== END 2019-08-07 20:10 | disposition home or self-care (01) ==
LOC: ER 17:49
DX: K52.9 Noninfective gastroenteritis and colitis, unspecified (principal); K92.1 Melena; R10.9 Unspecified abdominal pain; D25.9 Leiomyoma of uterus, unspecified; F17.210 Nicotine dependence, cigarettes, uncomplicated
CPT/HCPCS: 99284 ×2; 96374; 96361; 83690; 85025; 80053; 81001; 74177; Q9967; J1885; J7030

== ENCOUNTER 2019-10-07 07:13 | Emergency (ER) | payer BC, MEDICAID ==
[2019-10-07] MEDS ORDERED: ONDANSETRON HCL IV 4 MG/2 ML VIAL IVP ONE (07:39)
[2019-10-07] MEDS ORDERED: 0.9 % SODIUM CHLORIDE 1,000 ML BAG IV ONE (07:39)
--- NOTE | 2019-10-07 07:40 | Emergency Department Record ---
History of Present Illness - General Chief Complaint: Vomiting blood Stated Complaint: VOMITING BLOOD Time Seen by Provider: 10/07/19 07:24 Source: Patient Mode of Arrival: Ambulatory Limitations: No limitations - History of Present Illness Initial Comments: 29 yo female presents with nausea and vomiting since Sunday. She reports she has been have gastrointestinal issue for a couple months. She reports she had a colonoscopy 09/25/19. She was again seen at [facility] on 10/04/19. CT at that time demonstrated fluid filled loops of bowel otherwise negative. She reports her nausea and vomiting have continued since then. She did note streaks of blood during the night with the vomiting. No bloody stools or diarrhea. She states she was not discharged on Sunday with any nausea medication of PPI. She does not know the results of the colonoscopy. According to the report a polyp was removed and biopsies were taken. An area of decreased vascularity was noted of unknown significance. MD Complaint: Abdominal pain, Other Onset/Timin -: Days(s) Radiation: LLQ Severity scale (1-10): 5 Consistency: Constant Improves With: Nothing Worsens With: Eating Context: Other Associated Symptoms: Anorexia, Nausea, Vomiting - Related Data LMP (females 10-50): Current Patient : No Home Medications Medication Instructions Recorded Confirmed Last Taken Escitalopram Oxalate [Lexapro] 10 mg PO DAILY 10/07/19 10/07/19 10/07/19 Previous Rx's Medication Instructions Recorded Omeprazole [Prilosec] 20 mg PO DAILY #30 10/07/19 Ondansetron [Zofran Odt] 4 mg PO Q8H #20 tab.rapdis 10/07/19 Allergies Allergy/AdvReac Type Severity Reaction Status Date / Time codeine [CODEINE] Allergy Intermediate ANAPHYLAXIS Verified 10/07/19 07:18 Travel Screening - Travel/Exposure Within Last 30 Days Have you traveled within the last 30 days?: No - Travel/Exposure Within Last Year Have you traveled outside the [place] in the last year?: No - Additonal Travel Details Have you been exposed to anyone with a communicable illness?: No - Travel Symptoms Symptom Screening: None Review of Systems Constitutional: Denies: Chills, Fever, Malaise, Weakness Eyes: Denies: Eye discharge ENT: Denies: Congestion, Throat pain Respiratory: Denies: Cough, Dyspnea Cardiovascular: Denies: Chest pain, Palpitations, Syncope Endocrine: Denies: Fatigue Gastrointestinal: Reports: Abdominal pain, Nausea, Vomiting. Denies: Constipation, Diarrhea, Hematemesis, Hematochezia, Melena Genitourinary: Denies: Dysuria, Urgency Musculoskeletal: Denies: Arthralgia, Back pain, Myalgia Skin: Denies: Bruising, Change in color, Rash Neurological: Denies: Headache Psychiatric: Denies: Anxiety Hematological/Lymphatic: Denies: Easy bleeding, Easy bruising Past Medical History - SOCIAL HISTORY Smoking Status: Light tobacco smoker (<10/day) Alcohol Use: None Drug Use: None - RESPIRATORY Hx Respiratory Disorders: No - CARDIOVASCULAR Hx Cardio Disorders: No - NEURO Hx Neuro Disorders: No - GI Hx GI Disorders: No - Hx Genitourinary Disorders: Yes Hx Kidney Stones: Yes Hx UTI: Yes - ENDOCRINE Hx Endocrine Disorders: No - MUSCULOSKELETAL Hx Musculoskeletal Disorders: No - PSYCH Hx Psych Problems: No - HEMATOLOGY/ONCOLOGY Hx Hematology/Oncology Disorders: No Family Medical History Any Significant Family History?: No Family Hx Comment (NOT TO BE USED IN PLACE OF ITEMS BELOW): denies any hx. Physical Exam - General General Appearance: Alert, Oriented x3, Cooperative, No acute distress Limitations: No limitations - Head Head exam: Atraumatic, Normal inspection - Eye Eye exam: Normal appearance - ENT ENT exam: Normal exam, Mucous membranes moist Ear exam: Normal external inspection Nasal Exam: Normal inspection Mouth exam: Normal external inspection - Neck Neck exam: Normal inspection - Respiratory Respiratory exam: Normal lung sounds bilaterally. negative: Respiratory distress - Cardiovascular Cardiovascular Exam: Regular rate, Normal rhythm, Normal heart sounds - GI/Abdominal GI/Abdominal exam: Soft, Other (Very soft abdomen). negative: Distended, Guarding, Rebound, Rigid, Tenderness - Rectal Rectal exam: Deferred - exam: Deferred - Extremities Extremities exam: Normal inspection - Back Back exam: Denies: CVA tenderness (R), CVA tenderness (L), Paraspinal tenderness, Tenderness, Vertebral tenderness - Neurological Neurological exam: Alert, Oriented X3 - Psychiatric Psychiatric exam: Normal affect, Normal mood. negative: Agitated, Anxious - Skin Skin exam: Dry, Intact, Normal color, Warm Course Vital Signs 10/07/19 07:20 Temperature 97.8 F Pulse Rate 93 H Respiratory 20 Rate Blood Pressure 123/78 Pulse Ox 100 - Reevaluation(s) Reevaluation #1: 10/07/19 07:50 CT scan on 02/05/19 Negative for acute process CT scan on 04/01/19 Negative for acute process CT scan on 04/03/19 Negative for acute process CT scan on 08/07/19 Possible large descending and rectosigmoid bowel wall thickening vs artifact due to lack of distension of bowel CT scan on 10/04/19 Fluid filled small and large bowel. Correlate for enteritis 10/07/19 08:19 The CBC was reviewed. No acute abnormality. 10/07/19 08:30 The Lipase is normal The CMP is normal except 159 HCG is negative 10/07/19 09:01 The patient is doing much better. The nausea is well controlled. No vomiting. 10/07/19 09:05 No acute abnormalities on the surgical pathology reports from 09/10 but I recommended she still see her GI doctor to discuss the endoscopy results. 10/07/19 09:59 We discussed the results of the tests and questions were answered. The patient is doing well without symptoms and is comfortable with DC. We discussed at length reasons to immediately return to the ED as well as close follow up with her GI doctor. The patient will call the PCP for close follow up of this ED visit to review this visit and the tests performed DC vitals were reviewed. Medical Decision Making - Lab Data Result diagrams: 10/07/19 07:55 10/07/19 07:55 Disposition Disposition: Discharge Clinical Impression: Nausea and vomiting Qualifiers: Vomiting type: unspecified Vomiting Intractability: unspecified Qualified Code(s): R11.2 - Nausea with vomiting, unspecified Gastritis Qualifiers: Gastritis type: unspecified gastritis Chronicity: unspecified Gastritis bleeding: presence of bleeding unspecified Qualified Code(s): K29.70 - Gastritis, unspecified, without bleeding Disposition: Home, Self-Care Condition: (1) Good Instructions: Gastritis (ED), Acute Nausea and Vomiting (ED) Additional Instructions: Review this ER visit and the tests performed with your family doctor Call your doctor for the next available follow up appointment Return to the ER for a recheck if worse, any new concerns or questions Take the prescriptions provided as directed Prescriptions: Omeprazole [Prilosec] 20 mg PO DAILY #30 cap. Ondansetron [Zofran Odt] 4 mg PO Q8H #20 tab.rapdis Forms: Patient Portal Access Time of Disposition: 09:02 Quality - Quality Measures Quality Measures: N/A - Blood Pressure Screening Does Patient Have Any of the Following: No Blood Pressure Classification: Pre-Hypertensive BP Reading Systolic Measurement: 123 Diastolic Measurement: 78 Screening for High Blood Pressure: < Pre-Hypertensive BP, F/U Documented > [G8950] Pre-Hypertensive Follow-up Interventions: Referral to alternative/primary care provider.
[2019-10-07] MEDS ORDERED: PANTOPRAZOLE SODIUM IV 40 MG VIAL IVP ONE (07:46)
[2019-10-07 08:03] LABS: ABSOLUTE NEUTROPHIL COUNT 4.81; BASO % 0.3 % (0-6); EOS % 1.1 % (0-6); GRAN % 67.2 % (47-80); HEMATOCRIT 41.5 % (35.0-47.0); HEMOGLOBIN 13.2 gm/dl (11.6-16.0); LYMPH % 25.3 % (16-45); MEAN CELL VOLUME 89.4 fl (81-97); MEAN CORPUSCULAR HEMOGLOBIN 28.4 pg (27-33); MEAN CORPUSCULAR HGB CONC 31.8 g/dl (32-36); MEAN PLATELET VOLUME 10.2 fl (7.4-10.4); MONO % 6.1 % (0-9); PLATELET COUNT 356 K/uL (130-400); RED BLOOD COUNT 4.64 M/uL (3.80-5.40); RED CELL DISTRIBUTION WIDTH 13.4 % (11.5-14.5); WHITE BLOOD COUNT W/O DIFF 7.2 K/uL (4.2-12.2)
[2019-10-07 08:18] LABS: BLOOD UREA NITROGEN 9 mg/dL (6-20); CREATININE 0.6 mg/dL (0.5-0.9); EST GLOMERULAR FILTRATION RATE > 60 mL/min
[2019-10-07 08:19] LABS: LIPASE 15 U/L (13-60); TOTAL PROTEIN 7.2 g/dL (6.6-8.7)
[2019-10-07 08:21] LABS: GLUCOSE,RANDOM 92 mg/dL (74-109)
[2019-10-07 08:24] LABS: ALB/GLOB RATIO 1.3 (1.1-1.8); ALBUMIN 4.1 g/dL (4.0-5.0); ALKALINE PHOSPHATASE 159 U/L (35-104); ALT/SGPT 22 U/L (<33); AST/SGOT 18 U/L (10.0-35.0)
== END 2019-10-07 10:01 | disposition home or self-care (01) ==
LOC: ER 07:13
DX: K29.70 Gastritis, unspecified, without bleeding (principal); R10.32 Left lower quadrant pain; R11.2 Nausea with vomiting, unspecified; F17.210 Nicotine dependence, cigarettes, uncomplicated
CPT/HCPCS: 99284 ×2; 96374; 96375; 83690; 85025; 80053; 84703; J2405; 99282; C9113; J7030